=== PATIENT | female | born 1965 | race American Indian/Alaskan Native ===

== ENCOUNTER 2017-03-15 10:15 | Outpatient (CLI) | payer BC ==
--- NOTE | 2017-03-15 12:40 | Mammography Report ---
Bilateral mammogram: No previous studies available. CAD study utilized. Findings: Predominance adipose tissue bilaterally. Focal ill-defined asymmetry posterior inner right breast. No microcalcifications. Benign axillary nodes. Impression: Focal asymmetry. Recommend spot mag and sonographic examination. BI-RADS CATEGORY: 0 = Needs additional imaging evaluation ACR BI-RADS MAMMOGRAPHIC CODES: 0 = Needs additional imaging evaluation; 1 = Negative; 2 = Benign; 3 = Probably benign; 4 = Suspicious; 5 = Malignant; 6 = Known biopsy-proven malignancy COMMENT: 1. Dense breast tissue, i.e., adenosis, fibrocystic changes, etc., may obscure an underlying neoplasm. 2. Approximately 10% of cancers are not detected with mammography. 3. A negative mammography report should not delay biopsy if a clinically suspicious mass is present. COMMENT: Patient follow-up letters are generated in [employer].
== END 2017-03-15 10:16 | disposition home or self-care (01) ==
LOC: MAMMO 10:15
DX: Z12.31 Encounter for screening mammogram for malignant neoplasm of breast (principal)
CPT/HCPCS: 77067; G0202

== ENCOUNTER 2017-04-19 12:29 | Outpatient (CLI) | payer BC | END 2017-04-19 12:30 | disposition home or self-care (01) | LOC: LABHHL 12:29 | PROVIDERS: ATTEND Obstetrics & Gynecology | DX: Z01.419 Encounter for gynecological examination (general) (routine) without abnormal findings (principal); Z71.89 Other specified counseling | CPT/HCPCS: 87591 ==

== ENCOUNTER 2018-08-15 04:38 | Emergency (ER) | payer OTHER ==
[2018-08-15] MEDS ORDERED: SOLU-Medrol IM ONE (07:53)
[2018-08-15] MEDS ORDERED: BENADRYL IM ONE (07:53)
--- NOTE | 2018-08-15 07:55 | Emergency Department Report ---
ED Rash HPI - HPI Chief Complaint: Skin Rash Stated Complaint: RASH RIGHT SHOULDER PAIN Time Seen by Provider: 08/15/18 07:10 Location: Chest, Back, Abdomen Suspected Cause: Unknown Rash Symptoms: Yes Itching, No Facial Swelling, No Tongue/Oral Swelling, No Breathing Difficulties, No Choking Sensation, No Wheezing/Dyspnea, No Peeling, No Blistering, No Fever, No Lightheaded, No Malaise, No Myalgias Severity: moderate Other History: Patient reported that she prevent tourist 5 days ago it has HE an unknown reason. She said it is under her breasts and is not getting any better. She is not on any medication on it. Denies any respiratory symptoms. She has a history of fibroids would embolization and also tubal ligation. Denies any pain. ED Review of Systems ROS: Stated complaint: RASH RIGHT SHOULDER PAIN Other details as noted in HPI Constitutional: denies: chills, fever Respiratory: denies: cough, shortness of breath, wheezing Cardiovascular: denies: chest pain, palpitations, edema, syncope Musculoskeletal: denies: back pain, joint swelling, myalgia Skin: rash, pruritus Neurological: denies: headache ED Past Medical Hx - Past Medical History Previous Medical History?: No - Surgical History Past Surgical History?: Yes Additional Surgical History: fibroid embolization 2011. tubal ligation - Family History Family history: no significant - Social History Smoking Status: Never Smoker Substance Use Type: None - Medications Home Medications: Home Medications Medication Instructions Recorded Confirmed Last Taken Type hydrOXYzine HCL [Atarax] 25 mg PO Q6HR PRN #12 tablet 08/15/18 Unknown Rx methylPREDNISolone [Medrol] 4 mg PO QAM 6 Days #1 tab.ds.pk 08/15/18 Unknown Rx Rash Exam - Exam General: Vital signs noted. No distress. Alert and acting appropriately. This is a 52 old female here reports that she has rash. She is well-nourished well-developed in no acute distress. HEENT: No Periorbital Edema, No Conjuctival Injection, No Chemosis, No Perioral Edema, No Tongue Edema, No Uvular Edema, No Compromised Airway, No Drooling Lungs: Yes Good Air Exchange, Yes Wheezes, No Ronchi, No Stridor, No Cough, No Labored Respirations, No Retractions, No Use of Accessory Muscles, No Other Abnormal Lung Sounds Skin: Yes Urticarial Rash (anterior and posterior torso to include scattered area beneath breast.), Yes Erythema, Yes Other (resumes raised area scattered sparsely to anterior-posterior thorax, abdomen and beneath breast.), No Maculopapular Rash, No Morbilliform rash, No Bulla(e), No Excoriations, No Weeping, No Tenderness, No Edema, No Encrustations Other: Positive: Abdomen Normal, Neurologic Normal, Musculoskeletal Normal ED Course Vital Signs 08/15/18 05:07 Temperature 97.8 F Pulse Rate 79 Respiratory 18 Rate Blood Pressure 144/92 O2 Sat by Pulse 98 Oximetry - Reevaluation(s) Reevaluation #1: 08/15/18 07:56 Patient given Benadryl 50 mg IM and Solu-Medrol 125 mg I am an emergency room. ED Medical Decision Making - Medical Decision Making This is a 52-year-old female here for a skin rash for over the last 4 days. Please refer to notes for details Assessment/plan 1: Urticaria-patient given Benadryl and Solu-Medrol in the emergency room. Patient is better and she will be discharged home on Medrol Dosepak and Atarax. I discussed with patient if rash persists she needs follow-up with a manager life and she voiced understanding. Patient stable. Vital signs stable and she is a febrile and discharged home in stable condition with her family member. Critical care attestation.: If time is entered above; I have spent that time in minutes in the direct care of this critically ill patient, excluding procedure time. ED Disposition Clinical Impression: Urticaria, Pruritus Disposition: - TO HOME OR SELFCARE Is pt being admited?: No Does the pt Need Aspirin: No Condition: Stable Instructions: Urticaria (ED), Acute Rash (ED), Itchy Skin (ED) Additional Instructions: Please keep affected ear clean and dry F/u with pcp and manager life in 2 days Prescriptions: hydrOXYzine HCL [Atarax] 25 mg PO Q6HR PRN #12 tablet PRN Reason: Itching methylPREDNISolone [Medrol] 4 mg PO QAM 6 Days #1 tab.ds.pk Referrals: [facility] MD CHRISTY [Primary Care Provider] - 2-3 Days KAUSHIK BARUN MD [Staff Physician] - 2-3 Days Forms: Work/School Release Form(ED)
[2018-08-15 08:33] VITALS: BP 137/80
== END 2018-08-15 08:30 | disposition home or self-care (01) ==
LOC: ED 04:38
DX: L50.9 Urticaria, unspecified (principal); Z98.51 Tubal ligation status
CPT/HCPCS: 96372; 99282; J1200; J2930